=== PATIENT | female | born 1945 | race American Indian/Alaskan Native ===

== ENCOUNTER 2017-02-12 10:11 | Outpatient (CLI) | payer MEDICARE ==
[2017-02-12 13:18] LABS: Basophils % (Auto) 0.5 % (0.0-1.8); Eosinophils % (Auto) 2.2 % (0.0-4.3); Hemoglobin 11.5 gm/dl (10.1-14.3); Mean Corpuscular HGB Conc 34 % (30-34); Mean Corpuscular Hemoglobin 31 pg (28-32); Mean Corpuscular Volume 92 fl (79-97); Platelet Count 231 K/mm3 (140-440); Red Blood Count 3.68 M/mm3 (3.65-5.03); Red Cell Distribution Width 12.3 % (13.2-15.2); White Blood Count 4.3 K/mm3 (4.5-11.0)
[2017-02-12 13:39] LABS: Alanine Aminotransferase 9 units/L (7-56); Albumin 4.1 g/dL (3.9-5); Albumin/Globulin Ratio 1.2 %; Alkaline Phosphatase 87 units/L (35-129); Cholesterol 184 mg/dL (50-199); HDL Cholesterol 74 mg/dL (40-59); Iron 70 ug/dL (37-170); LDL Cholesterol,Direct 96 mg/dL (50-130); Total Protein 7.6 g/dL (6.3-8.2); Triglycerides 72 mg/dL (2-149); Uric Acid 7.3 mg/dL (3.5-7.6)
[2017-02-12 13:43] LABS: Bilirubin,Direct < 0.2 mg/dL (0-0.2)
[2017-02-14 05:22] LABS: Vitamin D, 25-OH, Total 36 ng/mL (30-100)
== END 2017-02-12 10:12 | disposition home or self-care (01) ==
LOC: LAB 10:11
PROVIDERS: ATTEND Internal Medicine
DX: I10 Essential (primary) hypertension (principal); D50.9 Iron deficiency anemia, unspecified; M25.50 Pain in unspecified joint; K21.9 Gastro-esophageal reflux disease without esophagitis
CPT/HCPCS: 36415; 80061; 80074; 82306; 82607; 82728; 83036; 83540; 84550; 85025

== ENCOUNTER 2017-06-06 12:13 | Outpatient (CLI) | payer MEDICARE ==
--- NOTE | 2017-06-06 13:28 | Cat Scan Report ---
CT HEAD WITHOUT CONTRAST INDICATION: Status post fall. Unspecified injury of head. COMPARISON: 01/04/2013. FINDINGS: Noncontrast head CT demonstrates normal ventricles and sulci without acute or recent infarct, hemorrhage, mass effect or midline shift. No abnormal extra-axial fluid collections. Posterior fossa structures and basilar cisterns within normal limits. Clear imaged paranasal sinuses and mastoid air cells. Right external auditory canal debris may be directly visualized. Atherosclerotic ICA calcifications. Edentulous jaw. No significantly depressed skull fractures with stable approximately 2 cm focal left frontoparietal bone sclerosis as on axial image 40, series 3. Normal overlying scalp soft tissues. CONCLUSION: No acute intracranial CT abnormality, as described. Thank you for the opportunity to participate in this patient's care.
== END 2017-06-06 12:14 | disposition home or self-care (01) ==
LOC: CT 12:13
PROVIDERS: ATTEND Nurse Practitioner
DX: S09.90XA Unspecified injury of head, initial encounter (principal); I25.10 Atherosclerotic heart disease of native coronary artery without angina pectoris; W19.XXXA Unspecified fall, initial encounter; Y93.89 Activity, other specified; Y92.89 Other specified places as the place of occurrence of the external cause; Y99.8 Other external cause status
CPT/HCPCS: 70450

== ENCOUNTER 2018-04-09 14:46 | Outpatient (CLI) | payer OTHER, MEDICARE | END 2018-04-09 14:47 | disposition home or self-care (01) | LOC: LABHHL 14:46 | PROVIDERS: ATTEND Surgery | DX: N63.22 Unspecified lump in the left breast, upper inner quadrant (principal) | CPT/HCPCS: 88305 ==

== ENCOUNTER 2018-11-14 20:55 | Emergency (ER) | payer MEDICARE ==
--- NOTE | 2018-11-14 21:13 | Emergency Department Report ---
Eye Injury/Foreign Body - HPI Duration: 1 Day Eye Location: Bilateral Severity: Mild Tetanus Status: Up to Date Eye Symptoms: Eye Pain: No, Blurred Vision: No, Eye Redness: Yes, Grinding/Hammering Metal: No, Used Eye Protection: No (na), Contact Lens Use: No, Recalls Injury: No, Photophobia: No Other History: 73 YO WHO WOKE UP TODAY WITH MATTED EYES. RECENT URTI AND COUGH. NO FEVER. AMBULATORY. NO CP OR SOB. ED Review of Systems ROS: Stated complaint: POSS EYE INFECTION Other details as noted in HPI Comment: All other systems reviewed and negative Constitutional: denies: chills, diaphoresis Eyes: as per HPI, eye discharge ENT: denies: ear pain Respiratory: denies: cough Cardiovascular: denies: palpitations Endocrine: denies: flushing Gastrointestinal: denies: nausea Genitourinary: denies: urgency Musculoskeletal: denies: back pain Skin: denies: lesions Neurological: denies: headache Psychiatric: denies: anxiety Hematological/Lymphatic: denies: easy bleeding ED Past Medical Hx - Past Medical History Previous Medical History?: Yes Hx of Cancer: Yes (Right Breast) - Surgical History Past Surgical History?: Yes Additional Surgical History: Right Lympy nodes removal - Family History Family history: no significant - Social History Smoking Status: Never Smoker Substance Use Type: None - Medications Home Medications: Home Medications Medication Instructions Recorded Confirmed Last Taken Type Azithromycin [Zithromax Z-MARCO ANTONIO] 250 mg PO DAILY #6 tablet 11/14/18 Unknown Rx Cetirizine HCl [ZyrTEC] 10 mg PO DAILY #30 capsule 11/14/18 Unknown Rx Polymyxin B Sulf/Trimethoprim 10 ml OP Q6H #1 each 11/14/18 Unknown Rx [Polytrim Eye Drops] Eye Injury Exam - Exam General: Vital signs noted. No distress. Alert and acting appropriately. a/o x 3 s1s2 no jvd no edema abd snt tm normal bilateral right conjunctiva red and with drainage lungs cta ED Course - Reevaluation(s) Reevaluation #1: 11/14/18 21:10 156/89 hr 90 temp 99.8 ED Medical Decision Making - Medical Decision Making simple eye no eye pain no change in vision ambulatory no glaucoma no trauma no trauma r conjunctiva redness cough no sputum no chills no wheezing non toxic ambulatory taking po without diff 140/80, hr 90, rr 20, temp 99.6 dc home with dc poc has pcp appnt next week. Critical care attestation.: If time is entered above; I have spent that time in minutes in the direct care of this critically ill patient, excluding procedure time. ED Disposition Clinical Impression: Conjunctivitis, URTI (acute upper respiratory infection) Disposition: DC- TO HOME OR SELFCARE Is pt being admited?: No Does the pt Need Aspirin: No Condition: Stable Instructions: Conjunctivitis (ED) Additional Instructions: MEDS ORDERED TODAY FOLLOW UP FRIDAY SCHEDULED DIET AND ACTIVITY TOLERATED WARM COMPRESSES WILL HELP Prescriptions: Polymyxin B Sulf/Trimethoprim [Polytrim Eye Drops] 10 ml OP Q6H #1 each Azithromycin [Zithromax Z-MARCO ANTONIO] 250 mg PO DAILY #6 tablet Cetirizine HCl [ZyrTEC] 10 mg PO DAILY #30 capsule Referrals: [facility] [Outside] - 3-5 Days Time of Disposition: 21:11
== END 2018-11-14 21:49 | disposition home or self-care (01) ==
LOC: ED 20:55
DX: H10.9 Unspecified conjunctivitis (principal); J06.9 Acute upper respiratory infection, unspecified; Z85.3 Personal history of malignant neoplasm of breast
CPT/HCPCS: 99281

== ENCOUNTER 2018-12-10 08:53 | Outpatient (CLI) | payer MEDICARE ==
[2018-12-10 10:21] LABS: Chol/HDL Ratio 2.55 %
[2018-12-13 12:44] LABS: Vitamin D, 25-OH, D2 <4 ng/mL
== END 2018-12-10 08:54 | disposition home or self-care (01) ==
LOC: LAB 08:53
PROVIDERS: ATTEND Internal Medicine
DX: E78.5 Hyperlipidemia, unspecified (principal); I10 Essential (primary) hypertension; E66.09 Other obesity due to excess calories
CPT/HCPCS: 36415; 80061; 82306; 82607

== ENCOUNTER 2019-07-05 08:17 | Emergency (ER) | payer MEDICARE ==
[2019-07-05 08:23] VITALS: BP 156/86
--- NOTE | 2019-07-05 08:38 | Emergency Department Report ---
ED General Adult HPI - General Chief complaint: Extremity Injury, Lower Stated complaint: RT FOOT EXTREME PAIN Time Seen by Provider: 07/05/19 08:32 Source: patient Mode of arrival: Ambulatory Limitations: No Limitations - History of Present Illness Initial comments: Patient is 73 years old female with history of breast cancer 15 years ago. Patient presented to the ER complaining of right leg pain started from the knee all the way down to the ankle. Patient started having pain 3 days ago. The patient denied any chest pain or shortness of breath. No fever or chills. Patient denied any recent injury. - Related Data Previous Rx's Medication Instructions Recorded Last Taken Type Azithromycin [Zithromax Z-MARCO ANTONIO] 250 mg PO DAILY #6 tablet 11/14/18 Unknown Rx Cetirizine HCl [ZyrTEC] 10 mg PO DAILY #30 capsule 11/14/18 Unknown Rx Polymyxin B Sulf/Trimethoprim 10 ml OP Q6H #1 each 11/14/18 Unknown Rx [Polytrim Eye Drops] Allergies Allergy/AdvReac Type Severity Reaction Status Date / Time No Known Allergies Allergy Unverified 02/10/14 08:33 ED Review of Systems ROS: Stated complaint: RT FOOT EXTREME PAIN Other details as noted in HPI Comment: All other systems reviewed and negative Constitutional: denies: chills, fever Respiratory: denies: cough, shortness of breath, SOB with exertion, wheezing Cardiovascular: denies: chest pain, palpitations Gastrointestinal: denies: abdominal pain, nausea, vomiting Musculoskeletal: denies: back pain Neurological: denies: headache, weakness ED Past Medical Hx - Past Medical History Previous Medical History?: No - Surgical History Past Surgical History?: Yes Additional Surgical History: Right Lympy nodes removal - Social History Smoking Status: Never Smoker Substance Use Type: None - Medications Home Medications: Home Medications Medication Instructions Recorded Confirmed Last Taken Type Azithromycin [Zithromax Z-MARCO ANTONIO] 250 mg PO DAILY #6 tablet 11/14/18 Unknown Rx Cetirizine HCl [ZyrTEC] 10 mg PO DAILY #30 capsule 11/14/18 Unknown Rx Polymyxin B Sulf/Trimethoprim 10 ml OP Q6H #1 each 11/14/18 Unknown Rx [Polytrim Eye Drops] ED Physical Exam - General Limitations: No Limitations General appearance: alert, in no apparent distress - Head Head exam: Present: atraumatic, normocephalic, normal inspection - Eye Eye exam: Present: normal appearance - ENT ENT exam: Present: normal exam, normal orophraynx, mucous membranes moist - Neck Neck exam: Present: normal inspection, full ROM. Absent: tenderness, meningismus - Respiratory Respiratory exam: Present: normal lung sounds bilaterally - Cardiovascular Cardiovascular Exam: Present: regular rate, normal rhythm, normal heart sounds - GI/Abdominal GI/Abdominal exam: Present: soft. Absent: distended, tenderness, guarding - Extremities Exam Extremities exam: Present: normal inspection, full ROM, normal capillary refill. Absent: tenderness, pedal edema, joint swelling, calf tenderness - Back Exam Back exam: Present: normal inspection, full ROM. Absent: CVA tenderness (R), CVA tenderness (L) - Neurological Exam Neurological exam: Present: alert, oriented X3, CN II-XII intact - Psychiatric Psychiatric exam: Present: normal mood - Skin Skin exam: Present: warm, intact, normal color ED Course Vital Signs 07/05/19 08:21 Temperature 97.6 F Pulse Rate 95 H Respiratory 18 Rate Blood Pressure 156/86 O2 Sat by Pulse 99 Oximetry ED Medical Decision Making - Radiology Data Radiology results: report reviewed Referring Physician: GRETA ESPAÑA Patient Name: CLAIRE MASON Date of : 1945 Sex: Female Report Date: 2019-07-05 Report Status: [place] [address] Vascular Lab Report Signed Patient: CLAIRE MASON MR#: [id number] : 1945 Acct:[id number] Age/Sex: 73 / F ADM Date: 07/05/19 Loc: ED Attending Dr: Ordering Physician: GRETA ESPAÑA Date of Service: 07/05/19 Procedure(s): VL venous duplex LE RT Accession Number(s): [id number] cc: GRETA ESPAÑA DUPLEX DOPPLER LOWER EXTREMITY VEINS, RIGHT INDICATION: right leg pain. TECHNIQUE: Duplex doppler imaging was performed through the veins of the right lower extremity using venous compression and other maneuvers. COMPARISON: No relevant prior imaging study available. FINDINGS: Right Common femoral vein: Negative. Right Superficial femoral vein: Negative. Right Popliteal vein: Negative. Right Calf veins: Negative. Additional findings: None.. IMPRESSION: 1. No sonographic evidence for DVT in the right lower extremity. Signer Name: Vinny Ferrara MD Signed: 07/05/2019 9:48 AM Workstation Name: [id number] Transcribed By: MACRINA Dictated By: Vinny Ferrara MD Electronically Authenticated By: Vinny Ferrara MD Signed Date/Time: 07/05/19947 DD/ 6 TD/TT: - Medical Decision Making Patient is 73 years old female with history of breast cancer 15 years ago. Patient presented to the ER complaining of right leg pain started from the knee all the way down to the ankle. Patient started having pain 3 days ago. The patient denied any chest pain or shortness of breath. No fever or chills. Patient denied any recent injury. Patient received Toradol 60 IM in the ER. X-ray of the knee and TB and fibula showed no fracture except for arthritis of the knee. Right lower extremity Doppler ultrasound is negative for DVT. Patient given prescription for Ultram and advised to follow-up with her primary care physician in the next 2-3 days and to return to the ER if symptoms are not improved. Critical care attestation.: If time is entered above; I have spent that time in minutes in the direct care of this critically ill patient, excluding procedure time. ED Disposition Clinical Impression: Right leg pain, Right knee pain Disposition: DC-01 TO HOME OR SELFCARE Is pt being admited?: No Condition: Stable Instructions: Osteoarthritis (ED) Referrals: PRIMARY CAREMD [Primary Care Provider] - 3-5 Days
--- NOTE | 2019-07-05 09:08 | XRay Report ---
RIGHT TIBIA AND FIBULA, 2 VIEWS INDICATION: right LEG pain. COMPARISON: None. IMPRESSION: No acute osseous or soft tissue abnormality. Moderate osteoarthritic changes are iden tified at the knee. Signer Name: Scott Johnson Jr, MD Signed: 07/05/2019 9:04 AM Workstation Name: [id number]
--- NOTE | 2019-07-05 09:53 | Vascular Lab Report ---
DUPLEX DOPPLER LOWER EXTREMITY VEINS, RIGHT INDICATION: right leg pain. TECHNIQUE: Duplex doppler imaging was performed through the veins of the right lower extremity using venous comp ression and other maneuvers. COMPARISON: No relevant prior imaging study available. FINDINGS: Right Common femoral vein: Negative. Right Superficial femoral vein: Negative. Right Popliteal vein: Negative. Right Calf veins: Negative. Additional findings: None.. IMPRESSION: 1. No sonographic evidence for DVT in the right lower extremity. Signer Name: Vinny Ferrara MD Signed: 07/05/2019 9:48 AM Workstation Name: [id number]
[2019-07-05] MEDS ORDERED: KETOROLAC 60 MG/2 ML INJ IM ONE (10:25)
== END 2019-07-05 10:40 | disposition home or self-care (01) ==
LOC: ED 08:17
DX: M79.604 Pain in right leg (principal); M25.561 Pain in right knee; Z98.890 Other specified postprocedural states; Z79.899 Other long term (current) drug therapy
CPT/HCPCS: 73590; 93971; 96372; 99284; J1885

== ENCOUNTER 2020-11-08 11:05 | Outpatient (CLI) | payer MEDICARE ==
[2020-11-08 11:30] LABS: Basophils % (Auto) 0.6 % (0.0-1.8); Eosinophils # (Auto) 0.1 K/mm3 (0.0-0.4); Hematocrit 34.1 % (30.3-42.9); Hemoglobin 11.6 gm/dl (10.1-14.3); Lymphocytes # (Auto) 1.8 K/mm3 (1.2-5.4); Lymphocytes % (Auto) 38.9 % (13.4-35.0); Mean Corpuscular HGB Conc 34 % (30-34); Mean Corpuscular Volume 95 fl (79-97); Monocytes # (Auto) 0.4 K/mm3 (0.0-0.8); Monocytes % (Auto) 8.4 % (0.0-7.3); Platelet Count 254 K/mm3 (140-440); Red Blood Count 3.59 M/mm3 (3.65-5.03)
[2020-11-08 11:53] LABS: Albumin 4.1 g/dL (3.9-5); Calcium 9.2 mg/dL (8.4-10.2); Chol/HDL Ratio 2.25 %
== END 2020-11-08 11:06 | disposition home or self-care (01) ==
LOC: LAB 11:05
PROVIDERS: ATTEND Internal Medicine
DX: Z13.29 Encounter for screening for other suspected endocrine disorder (principal); E78.5 Hyperlipidemia, unspecified; R73.9 Hyperglycemia, unspecified; E55.9 Vitamin D deficiency, unspecified; Z00.00 Encounter for general adult medical examination without abnormal findings
CPT/HCPCS: 36415; 80053; 80061; 82306; 83036; 84443; 85025

== ENCOUNTER 2021-04-23 09:22 | Outpatient (CLI) | payer MEDICARE ==
[2021-04-23 10:02] LABS: Bilirubin,Urine NEG (Negative); Blood,Urine SM (Negative); Color,Urine Yellow (Yellow); Mucus,Urine FEW /HPF
[2021-04-23 10:36] LABS: Protein,Urine >500 mg/dL (Negative)
== END 2021-04-23 09:23 | disposition home or self-care (01) ==
LOC: LAB 09:22
PROVIDERS: ATTEND Internal Medicine
DX: N39.0 Urinary tract infection, site not specified (principal)
CPT/HCPCS: 81001; 87086

== ENCOUNTER 2021-04-28 14:58 | Emergency (ER) | payer MEDICARE ==
[2021-04-28] MEDS ORDERED: MORPHINE 4 MG/1 ML INJ IV ONE (15:38)
--- NOTE | 2021-04-28 15:41 | Emergency Department Report ---
ED Abdominal Pain HPI - General Chief Complaint: Abdominal Pain Stated Complaint: LT SIDE STOMACH PAIN Time Seen by Provider: 04/28/21 15:32 Source: patient Mode of arrival: Ambulatory Limitations: No Limitations - History of Present Illness Initial Comments: Patient presented with abdominal pain. She describes a sharp and stabbing pain in the left lower abdomen that is also crampy in nature. It has been fairly persistent over the last week. Her regular physician had her check a urine and told her that she had an infection. She was given medication. This is failed to provide any symptomatic improvement. The pain is worsening. It is worse wi th palpation and movement. She has no flank pain. It does not radiate. She states she just cannot take it any longer needs something for the pain. The pain has been more persistent and that is why she came in. She has never had pain like this before. - Related Data Previous Rx's Medication Instructions Recorded Last Taken Type Azithromycin [Zithromax Z-MARCO ANTONIO] 250 mg PO DAILY #6 tablet 11/14/18 Unknown Rx Cetirizine HCl [ZyrTEC] 10 mg PO DAILY #30 capsule 11/14/18 Unknown Rx Polymyxin B Sulf/Trimethoprim 10 ml OP Q6H #1 each 11/14/18 Unknown Rx [Polytrim Eye Drops] Ondansetron [Zofran Odt] 4 mg PO Q8HR PRN #14 tab.rapdis 07/05/19 Unknown Rx traMADoL [Ultram] 50 mg PO Q6HR PRN #14 tablet 07/05/19 Unknown Rx HYDROcodone/APAP 5-325 [[place] 1 each PO Q6HR PRN #14 tablet 04/28/21 Unknown Rx 5/325] Allergies Allergy/AdvReac Type Severity Reaction Status Date / Time No Known Allergies Allergy Unverified 02/10/14 08:33 ED Review of Systems ROS: Stated complaint: LT SIDE STOMACH PAIN Other details as noted in HPI Comment: All other systems reviewed and negative Constitutional: denies: fever Eyes: denies: eye pain ENT: denies: throat pain Respiratory: denies: cough Cardiovascular: denies: chest pain Gastrointestinal: as per HPI Genitourinary: denies: dysuria Musculoskeletal: denies: back pain Skin: denies: rash Neurological: denies: headache Hematological/Lymphatic: denies: easy bruising ED Past Medical Hx - Past Medical History Previous Medical History?: No - Surgical History Past Surgical History?: No Additional Surgical History: Right Lympy nodes removal - Family History Family history: other (Negative for AAA) - Social History Smoking Status: Never Smoker Substance Use Type: None - Medications Home Medications: Home Medications Medication Instructions Recorded Confirmed Last Taken Type Azithromycin [Zithromax Z-MARCO ANTONIO] 250 mg PO DAILY #6 tablet 11/14/18 Unknown Rx Cetirizine HCl [ZyrTEC] 10 mg PO DAILY #30 capsule 11/14/18 Unknown Rx Polymyxin B Sulf/Trimethoprim 10 ml OP Q6H #1 each 11/14/18 Unknown Rx [Polytrim Eye Drops] Ondansetron [Zofran Odt] 4 mg PO Q8HR PRN #14 tab.rapdis 07/05/19 Unknown Rx traMADoL [Ultram] 50 mg PO Q6HR PRN #14 tablet 07/05/19 Unknown Rx HYDROcodone/APAP 5-325 [[place] 1 each PO Q6HR PRN #14 tablet 04/28/21 Unknown Rx 5/325] ED Physical Exam - General Limitations: No Limitations General appearance: alert, in distress (Uncomfortable) - Head Head exam: Present: atraumatic, normocephalic, normal inspection - Eye Eye exam: Present: normal appearance, EOMI. Absent: scleral icterus - ENT ENT exam: Present: normal exam, normal orophraynx, mucous membranes moist - Neck Neck exam: Present: normal inspection. Absent: meningismus - Respiratory Respiratory exam: Present: normal lung sounds bilaterally. Absent: respiratory distress - Cardiovascular Cardiovascular Exam: Present: regular rate, normal rhythm - GI/Abdominal GI/Abdominal exam: Present: soft, tenderness (Moderate tenderness in left lower quadrant without rebound or guarding.). Absent: distended, pulsatile mass - Extremities Exam Extremities exam: Present: normal capillary refill. Absent: pedal edema - Back Exam Back exam: Absent: CVA tenderness (R), CVA tenderness (L) - Neurological Exam Neurological exam: Present: alert, oriented X3, normal gait. Absent: motor sensory deficit - Psychiatric Psychiatric exam: Present: normal affect, normal mood - Skin Skin exam: Present: warm, dry ED Course Vital Signs 04/28/21 04/28/21 15:12 16:54 Temperature 98 F Pulse Rate 102 H Respiratory 16 12 Rate Blood Pressure 164/90 [Left] O2 Sat by Pulse 98 Oximetry - Reevaluation(s) Reevaluation #1: 04/28/21 15:39 IV, labs, and CT were ordered. Reevaluation #2: 04/28/21 17:[address] was noted. Patient was discharged. ED Medical Decision Making - Lab Data Result diagrams: 04/28/21 15:55 04/28/21 15:55 - Medical Decision Making Patient presents with left lower quadrant pain. Etiology remains unclear. She does not have diverticulitis on CT but does have diverticulosis. She could have partially treated the diverticular disease at this time. There was no evidence of kidney stone on CT but she certainly could have a non-radiopaque stone. There is no evidence of aneurysm. She has no perforation or mass. There is no tumor or obstruction. She was treated symptomatically and referred to her PCP for recheck. Critical Care Time: No Critical care attestation.: If time is entered above; I have spent that time in minutes in the direct care of this critically ill patient, excluding procedure time. ED Disposition Clinical Impression: LLQ pain Disposition: 01 HOME / SELF CARE / HOMELESS Is pt being admited?: No Does the pt Need Aspirin: No Condition: Stable Instructions: Abdominal Pain, Adult, [id number], Pain Without a Known Cause, Abdominal Pain (ED) Additional Instructions: Drink plenty of fluids. Finish your medication. Follow-up with your regular doctor for recheck and further testing. Return for any problems or concerns. Prescriptions: HYDROcodone/APAP 5-325 [[place] 5/325] 1 each PO Q6HR PRN #14 tablet PRN Reason: Pain Referrals: PRIMARY CARE, [Referring] - 3-5 Days
[2021-04-28 16:14] LABS: Basophils % (Auto) 0.4 % (0.0-1.8); Eosinophils % (Auto) 0.4 % (0.0-4.3); Hematocrit 32.8 % (30.3-42.9); Hemoglobin 11.2 gm/dl (10.1-14.3); Lymphocytes # (Auto) 1.2 K/mm3 (1.2-5.4); Lymphocytes % (Auto) 22.5 % (13.4-35.0); Mean Corpuscular HGB Conc 34 % (30-34); Mean Corpuscular Volume 97 fl (79-97); Monocytes # (Auto) 0.4 K/mm3 (0.0-0.8); Platelet Count 270 K/mm3 (140-440); Red Blood Count 3.37 M/mm3 (3.65-5.03); Red Cell Distribution Width 12.8 % (13.2-15.2)
[2021-04-28 16:32] LABS: Calcium 9.4 mg/dL (8.4-10.2)
[2021-04-28] MEDS ORDERED: ONDANSETRON 4 MG/2 ML INJ IV ONE (16:35)
--- NOTE | 2021-04-28 17:08 | Cat Scan Report ---
. CT ABDOMEN AND PELVIS WITHOUT CONTRAST HISTORY: llq pain. Acute left lower quadrant pain COMPARISON: None. TECHNIQUE: CT images of the abdomen and pelvis were obtained without administration of intravenous co ntrast. All CT scans at this location are performed using CT dose reduction for ALARA by means of au tomated exposure control. FINDINGS: Lungs/bones: Lung bases are clear. There are degenerative changes in the spine and pelvis with nothi ng acute. Abdomen/pelvis: There are several hypodensities in the liver which have the appearance of cysts. Gal lbladder surgically absent. The spleen, pancreas, adrenals, and proximal GI tract appear unremarkable . There are simple bilateral renal cysts. Bladder is collapsed. Uterus is surgically absent. No pelvic free fluid. There is colonic diverticulo sis with no acute inflammatory change identified. The appendix and terminal ileum appear normal. IMPRESSION: 1. No acute abnormality identified. 2. Incidental findings as above. Signer Name: Joe Mccullough MD Signed: 04/28/2021 5:03 PM Workstation Name: [id number]
[2021-04-28 18:03] VITALS: BP 124/73
== END 2021-04-28 18:27 | disposition home or self-care (01) ==
LOC: ED 14:58
DX: R10.32 Left lower quadrant pain (principal); Z98.890 Other specified postprocedural states
CPT/HCPCS: 36415; 74176; 80048; 85025; 96374; 96375; 99284; J2270; J2405

== ENCOUNTER 2021-05-22 10:37 | Outpatient (CLI) | payer MEDICARE ==
--- NOTE | 2021-05-22 13:51 | Cat Scan Report ---
CT ABDOMEN AND PELVIS WITHOUT CONTRAST HISTORY: DISORDER OF KIDNEY AND URETER OMNI 300 100ML COMPARISON: 04/28/2021 TECHNIQUE: Axial CT images were obtained through the abdomen and pelvis without IV contrast. Sagittal and coronal reformatted images. All CT scans at this location are performed using CT dose reduction for ALARA by means of automated exposure control. FINDINGS: CT ABDOMEN: Lung Bases: Clear. Liver: Scattered cysts measuring up to 2.7 cm are unchanged. The liver is unremarkable otherwise. Biliary: Gallbladder is surgically removed. No biliary dilatation. Spleen: No significant abnormality. Unenlarged. Pancreas: No significant abnormality. Adrenals: No significant abnormality. Kidneys: The kidneys are normal size, contour and position. Scattered small renal cysts are noted whi ch are unchanged. No nephrolithiasis or hydronephrosis is appreciated Lymphatics: No lymphadenopathy. Vasculature: Mild atherosclerotic disease of the abdominal aorta and iliac arteries. No aneurysm. Bowel/Peritoneum: There is a large amount of fecal matter in the colon and rectum. No evidence for argelia wel obstruction or focal inflammation. The appendix is unremarkable. No evidence for ascites, fluid c ollection or free air. CT PELVIS: : Stable hysterectomy changes. The vaginal cuff and bladder are unremarkable. Osseous Structures: Osteopenia. Moderate levocurvature of the lumbar spine with degenerative changes is stable. No acute osseous findings or bone lesion. Additional Findings: None IMPRESSION: No acute process is appreciated. No significant change since 04/28/2021. Scattered simple appearing liver and renal cysts. Moderate to severe constipation as described. Signer Name: Scott Johnson Jr, MD Signed: 05/22/2021 1:45 PM Workstation Name: [id number]
--- NOTE | 2021-05-22 15:50 | Mammography Report ---
DIGITAL SCREENING MAMMOGRAM WITH CAD, 05/22/2021 CLINICAL INFORMATION / INDICATION: Routine screening mammography. SCREENING MAMMOGRAM TECHNIQUE: Digital bilateral 2D mammography was obtained in the craniocaudal and mediolateral obliqu e projections. This examination was interpreted with the benefit of Computer-Aided Detection analysis . COMPARISON: April 25, 2020, October 21, 2019, April 22, 2019, April 02, 2018 FINDINGS: Breast Density: The breasts are heterogeneously dense, which may obscure small masses. No dominant mass, suspicious calcifications, or architectural distortion in either breast. There is post surgical change to the left central inner breast. IMPRESSION: No mammographic evidence of malignancy. Follow up recommendation: Routine yearly BI-RADS Category 2: Benign. A "normal" or negative report should not discourage follow up or biopsy of a clinically significant f inding. A written summary of these findings will be mailed to the patient. The patient will be entered into a mammography reporting system which will generate a reminder letter for the patient's next appointmen t at the appropriate interval. The [employer] recommends yearly mammograms starting at age 40 and continuing as l kodi as a woman is in good health. Breast MRI is recommended for women with an approximate 20-25% or greater lifetime risk of breast cancer, including women with a strong family history of breast or ova wan cancer or who have been treated for Hodgkin's disease. Signer Name: Derian Sotelo DO Signed: 05/22/2021 3:46 PM Workstation Name: [id number]
== END 2021-05-22 10:38 | disposition home or self-care (01) ==
LOC: CT 10:37
PROVIDERS: ATTEND Internal Medicine
DX: Z12.31 Encounter for screening mammogram for malignant neoplasm of breast (principal); M47.816 Spondylosis without myelopathy or radiculopathy, lumbar region; M43.8X6 Other specified deforming dorsopathies, lumbar region; M85.88 Other specified disorders of bone density and structure, other site; I70.0 Atherosclerosis of aorta; N28.9 Disorder of kidney and ureter, unspecified
CPT/HCPCS: 74176; 77067

== ENCOUNTER 2021-11-06 10:46 | Emergency (ER) | payer MEDICARE ==
[2021-11-06 12:07] LABS: Basophils % (Auto) 0.5 % (0.0-1.8); Eosinophils # (Auto) 0.1 K/mm3 (0.0-0.4); Eosinophils % (Auto) 1.2 % (0.0-4.3); Hematocrit 32.5 % (30.3-42.9); Hemoglobin 10.7 gm/dl (10.1-14.3); Lymphocytes # (Auto) 1.3 K/mm3 (1.2-5.4); Lymphocytes % (Auto) 26.5 % (13.4-35.0); Mean Corpuscular HGB Conc 33 % (30-34); Mean Corpuscular Volume 97 fl (79-97); Monocytes # (Auto) 0.4 K/mm3 (0.0-0.8); Platelet Count 274 K/mm3 (140-440); Red Blood Count 3.36 M/mm3 (3.65-5.03); Red Cell Distribution Width 12.6 % (13.2-15.2)
[2021-11-06 12:27] LABS: Albumin 4.2 g/dL (3.9-5)
[2021-11-06] MEDS ORDERED: SODIUM CHLORIDE 0.9% 1000 ML 1,000 ML IV ONE ×2 (12:33→14:48)
--- NOTE | 2021-11-06 13:10 | Emergency Department Report ---
<NORA ROSENBAUM - Last Filed: 11/06/21 19:22> ED Abdominal Pain HPI - General Chief Complaint: Abdominal Pain Stated Complaint: ABDOMINAL PAIN Time Seen by Provider: 11/06/21 11:47 - Related Data Previous Rx's Medication Instructions Recorded Last Taken Type Azithromycin [Zithromax Z-MARCO ANTONIO] 250 mg PO DAILY #6 tablet 11/14/18 Unknown Rx Cetirizine HCl [ZyrTEC] 10 mg PO DAILY #30 capsule 11/14/18 Unknown Rx Polymyxin B Sulf/Trimethoprim 10 ml OP Q6H #1 each 11/14/18 Unknown Rx [Polytrim Eye Drops] Ondansetron [Zofran Odt] 4 mg PO Q8HR PRN #14 tab.rapdis 07/05/19 Unknown Rx traMADoL [Ultram] 50 mg PO Q6HR PRN #14 tablet 07/05/19 Unknown Rx HYDROcodone/APAP 5-325 [[place] 1 each PO Q6HR PRN #14 tablet 04/28/21 Unknown Rx 5/325] Sodium Phosphate,[place]-Dibasic 133 ml RC DAILY #3 enema 11/06/21 Unknown Rx [Fleet Enema] polyethylene glycoL 3350 [Miralax 17 gm PO QDAY #7 packet 11/06/21 Unknown Rx 3350] Allergies Allergy/AdvReac Type Severity Reaction Status Date / Time No Known Allergies Allergy Verified 11/06/21 11:20 ED Past Medical Hx - Medications Home Medications: Home Medications Medication Instructions Recorded Confirmed Last Taken Type Azithromycin [Zithromax Z-MARCO ANTONIO] 250 mg PO DAILY #6 tablet 11/14/18 Unknown Rx Cetirizine HCl [ZyrTEC] 10 mg PO DAILY #30 capsule 11/14/18 Unknown Rx Polymyxin B Sulf/Trimethoprim 10 ml OP Q6H #1 each 11/14/18 Unknown Rx [Polytrim Eye Drops] Ondansetron [Zofran Odt] 4 mg PO Q8HR PRN #14 tab.rapdis 07/05/19 Unknown Rx traMADoL [Ultram] 50 mg PO Q6HR PRN #14 tablet 07/05/19 Unknown Rx HYDROcodone/APAP 5-325 [[place] 1 each PO Q6HR PRN #14 tablet 04/28/21 Unknown Rx 5/325] Sodium Phosphate,[place]-Dibasic 133 ml RC DAILY #3 enema 11/06/21 Unknown Rx [Fleet Enema] polyethylene glycoL 3350 [Miralax 17 gm PO QDAY #7 packet 11/06/21 Unknown Rx 3350] ED Course - Reevaluation(s) Reevaluation #1: 11/06/21 19:23 Patient seen and examined. She endorses no pain, nausea or vomiting. She endorses readiness for discharge. staff writer endorse that patient has had robust bowel movements. ED Medical Decision Making - Lab Data Result diagrams: 11/06/21 11:54 11/06/21 11:54 ED Disposition Clinical Impression: Constipation, Fecal impaction, Dehydration, Renal insufficiency Disposition: HOME / SELF CARE / HOMELESS Is pt being admited?: No Does the pt Need Aspirin: No Condition: Stable Instructions: Abdominal Pain (ED) Additional Instructions: Take the medication as prescribed. Follow-up with your GI doctor regarding your. Drink plenty of fluids to prevent worsening dehydration. Your kidney function is mildly decreased because of dehydration. Follow-up with the primary care doctor and/or orthotist for further evaluation. Return if symptoms worsen as indicated by your discharge instructions. Prescriptions: Sodium Phosphate,[place]-Dibasic [Fleet Enema] 133 ml RC DAILY #3 enema polyethylene glycoL 3350 [Miralax 3350] 17 gm PO QDAY #7 packet Referrals: DAMION CHAPA MD [Primary Care Provider] - 3-5 Days KEYUR FITZGERALD MD [Staff Physician] - 3-5 Days EDMOND BREAUX MD [Staff Physician] - 3-5 Days (Nephrology) <JAYNE ABRAHAM - Last Filed: 11/10/21 09:18> ED Abdominal Pain HPI - General Source: patient Mode of arrival: Ambulatory Limitations: No Limitations - History of Present Illness Initial Comments: 76-year-old female with no significant past medical history presents to the hospital complaining of constipation. Patient has not had a bowel movement in last 2 weeks. She was seen by her GI doctor Dr. Fitzgerald and prescribed Trulance. Patient started the medication 4 days ago and took it for 3 days but discontinued it because she was having crampy abdominal pain, felt like she had a bowel movement, but nothing will come out. She now complains of rectal and vaginal pressure with decreased in urine output. No significant abdominal pain at this time. No nausea, vomiting, or fever ED Review of Systems ROS: Stated complaint: ABDOMINAL PAIN Other details as noted in HPI Comment: All other systems reviewed and negative ED Past Medical Hx - Past Medical History Previous Medical History?: No - Surgical History Past Surgical History?: Yes Additional Surgical History: Right Lympy nodes removal. Hysterectomy - Social History Smoking Status: Never Smoker Substance Use Type: None ED Physical Exam - General Limitations: No Limitations - Other Other exam information: General: No acute distress Head: Atraumatic Eyes: normal appearance ENT: Moist mucous membranes Neck: Normal appearance, no midline tenderness Chest: Clear to auscultation bilaterally CV: Regular rate and rhythm Abdomen: Soft, normal bowel sounds, nontender, nondistended, no rebound or guarding Back: Normal inspection Extremity: Normal inspection, full range of motion Neuro: Alert O x 3, no facial asymmetry, speech clear, no gross motor sensory deficit Psych: Appropriate behavior Skin: No rash ED Course Vital Signs 11/06/21 11/06/21 11:18 17:02 Temperature 98.0 F Pulse Rate 89 74 Respiratory 18 18 Rate Blood Pressure 153/85 Blood Pressure 146/73 [Right] O2 Sat by Pulse 99 97 Oximetry - Consultations Consultation #1: 11/06/21 15:02 Dewayne Samson GI recommended mag citrate times two 1 hour apart. With Fleet enemas followed by MiraLAX daily ED Medical Decision Making - Lab Data Result diagrams: 11/06/21 11:54 11/06/21 11:54 Lab Results 11/06/21 11/06/21 Range/Units 11:54 11:54 WBC 5.1 (4.5-11.0) K/mm3 RBC 3.36 L (3.65-5.03) M/mm3 Hgb 10.7 (10.1-14.3) gm/dl Hct 32.5 (30.3-42.9) % MCV 97 (79-97) fl MCH 32 (28-32) pg MCHC 33 (30-34) % RDW 12.6 L (13.2-15.2) % Plt Count 274 (140-440) K/mm3 Lymph % (Auto) 26.5 (13.4-35.0) % [place] % (Auto) 7.0 (0.0-7.3) % Eos % (Auto) 1.2 (0.0-4.3) % Baso % (Auto) 0.5 (0.0-1.8) % Lymph # (Auto) 1.3 (1.2-5.4) K/mm3 [place] # (Auto) 0.4 (0.0-0.8) K/mm3 Eos # (Auto) 0.1 (0.0-0.4) K/mm3 Baso # (Auto) 0.0 (0.0-0.1) K/mm3 Seg Neutrophils % 64.8 (40.0-70.0) % Seg Neutrophils # 3.3 (1.8-7.7) K/mm3 Sodium 141 (137-145) mmol/L Potassium 4.0 (3.6-5.0) mmol/L Chloride 102.5 (98-107) mmol/L Carbon Dioxide 23 (22-30) mmol/L Anion Gap 20 mmol/L BUN 21 H (7-17) mg/dL Creatinine 1.6 H (0.6-1.2) mg/dL Estimated GFR 38 ml/min BUN/Creatinine Ratio 13 % Glucose 114 H (65-100) mg/dL Calcium 10.0 (8.4-10.2) mg/dL Total Bilirubin 0.40 (0.1-1.2) mg/dL AST 15 (5-40) units/L ALT 6 L (7-56) units/L Alkaline Phosphatase 73 (35-129) units/L Total Protein 7.4 (6.3-8.2) g/dL Albumin 4.2 (3.9-5) g/dL Albumin/Globulin Ratio 1.3 % Lipase 45 (13-60) units/L - Radiology Data Radiology results: report reviewed (Constipation, fecal impaction) - Medical Decision Making 76-year-old female presents to the hospital with constipation noncompliant with medication prescribed by GI that she felt like it was not working. ED work-up reveals mild renal sufficiency/dehydration and constipation with fecal impaction. 2 total liters of normal saline ordered Critical Care Time: No Critical care attestation.: If time is entered above; I have spent that time in minutes in the direct care of this critically ill patient, excluding procedure time. ED Disposition Is pt being admited?: No Does the pt Need Aspirin: No
--- NOTE | 2021-11-06 13:16 | XRay Report ---
ABDOMEN 2 VIEW(S) INDICATION / CLINICAL INFORMATION: constipation. COMPARISON: CT on 05/22/2021 FINDINGS: TUBES / LINES: None. BOWEL GAS PATTERN/EXTRALUMINAL GAS: No dilated bowel. Moderate constipation. No pneumatosis or second fiona signs of free air. ADDITIONAL FINDINGS: No significant additional findings. IMPRESSION: 1. No acute findings. Moderate constipation. Signer Name: Jay Kramer MD Signed: 11/06/2021 1:11 PM Workstation Name: [id number]
--- NOTE | 2021-11-06 13:24 | Cat Scan Report ---
CT ABDOMEN AND PELVIS WITH CONTRAST HISTORY: abd pain, constipation COMPARISON: 05/22/2021 TECHNIQUE: Axial CT images were obtained through the abdomen and pelvis after 80 cc of Omnipaque 300 IV contrast. Sagittal and coronal reformatted images. All CT scans at this location are performed usi ng CT dose reduction for ALARA by means of automated exposure control. FINDINGS: CT ABDOMEN: Lung Bases: Clear. Liver: 1 cm left hepatic lobe cyst and 2 cm right hepatic lobe cyst are unchanged. The liver is other cole unremarkable. Biliary: Stable cholecystectomy changes. No biliary dilatation. Spleen: No significant abnormality. Unenlarged. Pancreas: No significant abnormality. Adrenals: No significant abnormality. Kidneys: Mild cortical thinning in both kidneys is present. Stable 1.8 cm cyst in the superior left k idney. No obstructive uropathy. Lymphatics: No lymphadenopathy. Vasculature: No significant abnormality. Bowel/Peritoneum: There is a large amount of fecal matter throughout the colon and particularly in th e rectal vault. The stomach and small bowel loops are unremarkable. The appendix is not confidently i dentified. CT PELVIS: : Hysterectomy. The adnexa and bladder are unremarkable. Osseous Structures: Stable mild thoracolumbar scoliosis with multilevel degenerative changes in the l umbar spine. Additional Findings: None IMPRESSION: Moderate to severe constipation. Fecal impaction in the rectum could be present. Stable liver cysts and left renal cyst. Cholecystectomy and hysterectomy. No acute inflammatory process is appreciated. Signer Name: Scott Johnson Jr, MD Signed: 11/06/2021 1:20 PM Workstation Name: [id number]
[2021-11-06] MEDS ORDERED: MAGNESIUM CITRATE 300 ML ORAL LIQD PO ONE (14:56)
[2021-11-06] MEDS: MAGNESIUM CITRATE 300 ML ORAL LIQD PO SCH ×2 (15:58→17:06)
[2021-11-06 17:03] VITALS: BP 146/73
[2021-11-06] MEDS ORDERED: ONDANSETRON 4 MG/2 ML INJ IV ONE (18:31)
== END 2021-11-06 19:22 | disposition home or self-care (01) ==
LOC: ED 10:46
DX: K56.41 Fecal impaction (principal); E86.0 Dehydration; N28.9 Disorder of kidney and ureter, unspecified
CPT/HCPCS: 36415; 74019; 74177; 80053; 83690; 85025; 96361; 96374; 99284; J2405; J7030; Q9967; Q0162

== ENCOUNTER 2021-11-12 12:15 | Emergency (ER) | payer MEDICARE | END 2021-11-12 12:20 | disposition left against medical advice (07) | LOC: ED 12:15 | DX: R10.2 Pelvic and perineal pain (principal); Z53.21 Procedure and treatment not carried out due to patient leaving prior to being seen by health care provider ==